=== PATIENT | male | born 1990 | race Caucasian/White ===

== ENCOUNTER 2023-03-10 12:45 | Emergency (ER) | payer OTHER ==
[~2023-03-10] VITALS: Ht 175.3 cm; Wt 80.0 kg
[2023-03-10 12:48] VITALS: O2SAT 99
[2023-03-10] MEDS ORDERED: LIDOCAINE HCL/EPINEPHRINE 1%-EPI 1:100,000 20 ML VIAL INFIL ONE (13:00)
[2023-03-10] MEDS ORDERED: BACITRACIN ZINC OINT UDPKT TOP ONE (13:00)
[2023-03-10 16:34] VITALS: BP 146/74; PULSE 102; RESP 18; TEMP 98.5
== END 2023-03-10 16:36 | disposition home or self-care (01) ==
LOC: ER 12:45
DX: S01.01XA Laceration without foreign body of scalp, initial encounter (principal); J45.909 Unspecified asthma, uncomplicated; Y08.89XA Assault by other specified means, initial encounter; Y93.89 Activity, other specified; Y92.89 Other specified places as the place of occurrence of the external cause; Y99.8 Other external cause status
CPT/HCPCS: 74018; 70450; 12002; 12011; 99284; J3490; Z7610 ×4